=== PATIENT | female | born 1945 | race Caucasian/White ===

== ENCOUNTER 2021-01-14 08:52 | Day surgery (SDC) | payer MEDICARE ==
[2021-01-14] MEDS ORDERED: Lidocaine 1% PF 5 ML VIAL ONE (09:59)
[2021-01-14] MEDS ORDERED: PROPOFOL 200 MG/20 ML VIAL ONE (09:59)
--- NOTE | 2021-01-14 12:21 | OP ---
DATE OF PROCEDURE: 01/14/2021 PROCEDURE PERFORMED: Esophagogastroduodenoscopy with percutaneous endoscopic gastrostomy tube placement. PREOPERATIVE DIAGNOSIS: Esophageal dysphagia secondary to stroke. DESCRIPTION OF PROCEDURE: Informed consent was obtained. The patient was sedated with total intravenous anesthesia. She blew three IVs through the course of the procedure. She received cefazolin 2 g prior to the procedure. The esophagus was normal. The GE junction was normal. The stomach was normal including retroflexed views. The pylorus and first and second portions of the duodenum were normal. The stomach was fully insufflated and the appropriate site in the left upper quadrant below the left ribs was transilluminated and palpated with good one-to-one motion and good transillumination identified. The skin was sterilized with chlorhexidine. The site was anesthetized with 5 mL of 1% lidocaine. The 22-gauge needle passed easily through the abdominal wall to the stomach under direct visualization. A small skin incision was performed and the catheter was placed through the abdominal wall into the stomach again easily and the wire was placed through the catheter and grasped with a snare and pulled out through the patient's mouth. The 20-[place] gastrostomy tube was then placed by the pull-through technique with a rubber internal bumper. The external bumper was placed at 5 cm with the site then treated with antibiotic ointment and 2x2s placed underneath the external bumper. The tube was dressed and the patient tolerated the procedure without immediate complication. Second-look endoscopy was not performed as she did lose access of her IV, but the procedure went very easily and smoothly without indication that second-look endoscopy was necessary. IMPRESSION: 1. Start feeds in 8 hours per dietitian recommendations. 2. She may transfer back to rehab today. Job ID: [id number]
[2021-01-14] MEDS ORDERED: Morphine 2 MG/ML VIAL ONE (13:16)
== END 2021-01-14 13:35 ==
LOC: SDC 08:52
PROVIDERS: ATTEND Internal Medicine Gastroenterology
PROC: 0DH63UZ Insertion of Feeding Device into Stomach, Percutaneous Approach (ICD-10-PCS; principal; 2021-01-14)
DX: I69.391 Dysphagia following cerebral infarction (principal); I10 Essential (primary) hypertension; E78.5 Hyperlipidemia, unspecified
CPT/HCPCS: 43246; J2270; J0690; J2704

== ENCOUNTER 2021-01-29 01:50 | Observation (INO) | payer MEDICARE ==
[2021-01-29 04:31] VITALS: BMI 28.0
[2021-01-29] MEDS ORDERED: Acetaminophen 325 MG TAB PO PRN (06:50)
[2021-01-29] MEDS ORDERED: Haloperidol Lactate 5 MG/ML VIAL IM PRN ×2 (07:51→08:08)
[2021-01-29 08:38] LABS: Anion Gap 18 mmol/L (10-20); BUN (Urea Nitrogen) 23 mg/dL (9.8-20.1); Calc. Creatinine Clearance 60 mL/min (70-130); Carbon Dioxide 15 mmol/L (23-31); Chloride 109 mmol/L (98-107); Glucose 106 mg/dL (83-110); Potassium 3.6 mmol/L (3.5-5.1); Sodium 138 mmol/L (136-145)
[2021-01-29] MEDS: Lactated Ringer's 1,000 ML IV SCH ×2 (10:36→17:17)
[2021-01-29] MEDS: Ibuprofen 200 MG TAB PO PRN (12:04)
[2021-01-30] MEDS: Lactated Ringer's 1,000 ML IV SCH ×2 (04:03→14:35)
[2021-01-30] MEDS ORDERED: Metamucil PACK PO SCH (09:45)
[2021-01-30] MEDS ORDERED: Calcium Carbonate 500 MG ChewTAB PO PRN (18:35)
[2021-01-30] MEDS: Ibuprofen 200 MG TAB PO PRN (20:35)
[2021-01-31] MEDS: Lactated Ringer's 1,000 ML IV SCH (02:54)
[2021-01-31 08:57] VITALS: BP 113/72; TEMP 98.7
[2021-01-31] MEDS ORDERED: Metamucil PACK PO SCH (09:00)
== END 2021-01-31 15:17 | disposition home or self-care (01) ==
LOC: ERS 01:50 → T4-A 02:54
PROVIDERS: ADMIT Family Medicine; ATTEND Family Medicine
DX: G93.49 Other encephalopathy (principal); E86.1 Hypovolemia; I10 Essential (primary) hypertension; F41.9 Anxiety disorder, unspecified; R73.03 Prediabetes; Z87.820 Personal history of traumatic brain injury; Z66 Do not resuscitate
CPT/HCPCS: 80048; 87040; 99285; G0378 ×4; 36415